=== PATIENT | female | born 2000 | race Caucasian/White ===

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

== ENCOUNTER → 2020-02-05 | Outpatient (CLI) | payer BC, OTHER ==
[~2020-02-05] MED LIST changes: -LR 1,000 ML IV ONE; -ceFAZolin SOD 2 GM in IV 1 EA IV ONE; -fentaNYL 100 MCG/2 ML INJECTION (J3010) IV SCH
--- NOTE | 2020-02-06 01:46 | REP ---
Clinical: Trauma. Technique: Frontal view of the chest with eight views of the right and left hemithorax. Findings: Frontal view of the chest demonstrates no acute cardiopulmonary process. Multiple views of the right and left hemithorax demonstrates no obvious acute rib fracture or pathology. Impression: Normal bilateral rib series Electronically Signed by Khari Renteria MD 02/06/2020 01:38 A
== END ==
LOC: M WUC 12:15
PROVIDERS: ATTEND Nurse Practitioner Family
DX: S23.41XA Sprain of ribs, initial encounter (principal); X58.XXXA Exposure to other specified factors, initial encounter; Y92.9 Unspecified place or not applicable

== ENCOUNTER → 2020-07-11 | Outpatient (CLI) | payer BC, OTHER ==
--- NOTE | 2020-07-11 09:13 | REP ---
INDICATION: RUQ ABD PAIN COMPARISON: None. TECHNIQUE: Real time bell scale ultrasound examination using curved array transducer. FINDINGS: Liver and pancreas are normal in contour, size, and echogenicity without focal hepatic or pancreatic lesion identified. Gallbladder is contracted without gallstones, wall thickening, or pericholecystic fluid. No biliary ductal dilatation is appreciated on the common bile duct measures 3 mm diameter. Right kidney is normal in reniform shape without hydronephrosis and measures 13.2 x 5.2 x 2.9 cm. No ascites in the visualized right upper quadrant. IMPRESSION: Normal right upper quadrant ultrasound examination. No obvious gallbladder or biliary pathology noted. <Electronically signed by Khari Renteria > 07/11/20 [id number]
== END ==
LOC: M RAD 08:07
PROVIDERS: ATTEND Internal Medicine Gastroenterology
DX: R10.9 Unspecified abdominal pain (principal); R11.2 Nausea with vomiting, unspecified; R19.7 Diarrhea, unspecified; K62.5 Hemorrhage of anus and rectum; Z83.71 Family history of colonic polyps; Z80.0 Family history of malignant neoplasm of digestive organs; R63.4 Abnormal weight loss

== ENCOUNTER → 2020-08-29 | Outpatient (CLI) | payer BC, OTHER | LOC: M LABSMTC 13:14 | PROVIDERS: ATTEND Orthopaedic Surgery | DX: Z01.812 Encounter for preprocedural laboratory examination (principal); Z20.828 Contact with and (suspected) exposure to other viral communicable diseases ==

== ENCOUNTER → 2021-04-20 | Outpatient (REF) | payer BC, OTHER | LOC: M LAB REF 11:20 | PROVIDERS: ATTEND Physician Assistant | DX: J02.9 Acute pharyngitis, unspecified (principal) ==

== ENCOUNTER → 2022-06-24 | Outpatient (CLI) | payer BC, OTHER | LOC: M RAD 08:46 | PROVIDERS: ATTEND Internal Medicine Gastroenterology | DX: R11.2 Nausea with vomiting, unspecified (principal); R10.9 Unspecified abdominal pain; R14.3 Flatulence; R19.4 Change in bowel habit | CPT/HCPCS: 78227; A9537 ==

== ENCOUNTER → 2023-08-16 | Outpatient (CLI) | payer BC, OTHER | LOC: M WUC 12:04 | PROVIDERS: ATTEND Physician Assistant | DX: K59.00 Constipation, unspecified (principal); R10.32 Left lower quadrant pain; R14.3 Flatulence ==

== ENCOUNTER → 2023-09-21 | Outpatient (REF) | payer OTHER, BC ==
[2023-09-21 17:23] LABS: CHLAMYDIA DNA AMPLIFICATION NEGATIVE (NEGATIVE); GC DNA AMPLIFICATION NEGATIVE (NEGATIVE)
== END ==
LOC: M SFHCWAGY 15:08
PROVIDERS: ATTEND Nurse Practitioner Family
DX: R10.2 Pelvic and perineal pain (principal)

== ENCOUNTER → 2023-10-11 | Outpatient (REF) | payer OTHER, BC | LOC: M SFHCWAGY 13:17 | PROVIDERS: ATTEND Nurse Practitioner Family | DX: L90.0 Lichen sclerosus et atrophicus (principal) ==

== ENCOUNTER → 2023-10-14 | Outpatient (CLI) | payer BC, OTHER | LOC: M RAD 12:29 | PROVIDERS: ATTEND Nurse Practitioner Family | DX: R10.2 Pelvic and perineal pain (principal) ==

== ENCOUNTER → 2023-10-18 | Outpatient (CLI) | payer BC, OTHER ==
[~2023-10-18] MED LIST changes: +E-Z-GAS II EFFERVESCENT PACKET (SODIUM BICARB./CITRIC ACID/SIMETHICONE) As Ordered ONE; +E-Z-HD 98% w/w 340GM SUSP BTL As Ordered ONE; +E-Z-PAQUE 96% w/w SUSP 176GM BTL As Ordered ONE
== END ==
LOC: M RAD 08:45
PROVIDERS: ATTEND Internal Medicine Gastroenterology
DX: R10.9 Unspecified abdominal pain (principal); R19.4 Change in bowel habit; R19.7 Diarrhea, unspecified; R11.2 Nausea with vomiting, unspecified; R63.4 Abnormal weight loss; K44.9 Diaphragmatic hernia without obstruction or gangrene

== ENCOUNTER → 2023-11-01 | Outpatient (CLI) | payer BC, OTHER ==
[~2023-11-01] MED LIST changes: -E-Z-GAS II EFFERVESCENT PACKET (SODIUM BICARB./CITRIC ACID/SIMETHICONE) As Ordered ONE; -E-Z-HD 98% w/w 340GM SUSP BTL As Ordered ONE; -E-Z-PAQUE 96% w/w SUSP 176GM BTL As Ordered ONE
[2023-11-01 10:30] LABS: URINE PREG TEST NEGATIVE (NEGATIVE)
[2023-11-01 11:29] LABS: FOLLICLE STIMULATING HORMONE 3.9 mIU/ML; PROGESTERONE 1.59 NG/ML; PROLACTIN 4.59 NG/ML
[2023-11-02 14:09] LABS: TESTOSTERONE FREE (DIRECT) 6.4 pg/mL (0.0-4.2)
== END ==
LOC: M PLALAB 09:03
PROVIDERS: ATTEND Nurse Practitioner Family
DX: R68.82 Decreased libido (principal); Z30.018 Encounter for initial prescription of other contraceptives